=== PATIENT | female | born 1950 | race Caucasian/White ===

== ENCOUNTER 2021-07-11 19:52 | Inpatient (IN) | payer MEDICAID, MEDICARE ==
[~2021-07-11] VITALS: Ht 152.4 cm; Wt 93.2 kg
[2021-07-11] MEDS: BLOOD SUGAR DIAGNOSTIC 1 EACH STRIP IN SCH (07:30)
--- NOTE | 2021-07-11 20:10 | NUR ---
PT BIBDAUGHTER WITH C/O SOB X 1 WEEK. PT ALERT AND ORIENTED X4, BROUGHT IN BY WHEELCHAIR BUT AMBULATORY.
[2021-07-11] MEDS ORDERED: IPRATROPIUM NEB FS 0.5 MG/2.5 ML AMPUL.NEB ONE (20:19)
[2021-07-11] MEDS ORDERED: ALBUTEROL FS 2.5 MG/3 ML VIAL.NEB ONE (20:19)
--- NOTE | 2021-07-11 20:20 | NUR ---
LINE ESTABLISHED @ 20[facility]. BLOOD TAKEN AND SENT TO THE LAB.
--- NOTE | 2021-07-11 20:24 | NUR ---
EMT @ BEDSIDE FOR EKG
[2021-07-11] MEDS ORDERED: IPRATROPIUM NEB FS 0.5 MG/2.5 ML AMPUL.NEB NEB ONE (20:30)
[2021-07-11] MEDS ORDERED: methylPREDNISolone SOD SUCC 125 MG/2ML VIAL IV ONE (20:30)
[2021-07-11] MEDS ORDERED: ALBUTEROL FS 2.5 MG/3 ML VIAL.NEB CONTNEB ONE (20:30)
[2021-07-11 20:35] LABS: BASOPHILS # (AUTO) 0.1 K/uL (0.0-0.2); BASOPHILS % (AUTO) 1.2 % (0.0-2.0); HEMATOCRIT 34 % (33-45); HEMOGLOBIN 10.8 g/dL (11.5-14.8); LYMPHOCYTES # (AUTO) 0.8 K/uL (0.8-4.8); LYMPHOCYTES % (AUTO) 15.2 % (20.0-44.0); MEAN CORPUSCULAR HGB CONC 32 g/dl (31.0-36.0); MEAN CORPUSCULAR VOLUME 95 fL (82-100); MONOCYTES # (AUTO) 0.4 K/uL (0.1-1.30); MONOCYTES % (AUTO) 8.3 % (2.0-12.0); NEUTROPHILS # (AUTO) 3.7 K/uL (1.8-8.9); NEUTROPHILS % (AUTO) 71.3 % (43.0-81.0); PLATELET COUNT (AUTO) 113 K/uL (150-450); RED BLOOD CELL COUNT(AUTO) 3.55 MIL/uL (4.0-5.2); WHITE BLOOD COUNT (AUTO) 5.2 K/uL (4.3-11.0)
[2021-07-11] MEDS ORDERED: methylPREDNISolone SOD SUCC 125 MG/2ML VIAL ONE (20:35)
[2021-07-11 20:56] LABS: CALCIUM, SERUM 8.6 mg/dL (8.5-10.1); CARBON DIOXIDE 26 mmol/L (21-32); CHLORIDE 105 mmol/L (98-107); CREATININE 1.7 mg/dL (0.6-1.3); GLUCOSE 219 mg/dL (74-106); SODIUM SERUM 140 mmol/L (136-145); UREA NITROGEN, BLOOD 45 mg/dL (7-18)
[2021-07-11 21:02] LABS: ALANINE AMINOTRANSFERASE 24 U/L (12-78); ALBUMIN 3.5 g/dL (3.4-5.0); ALKALINE PHOSPHATASE 99 U/L (46-116); ASPARTATE AMINOTRANSFERASE 21 U/L (15-37); BILIRUBIN,DIRECT 0.1 mg/dL (0.0-0.2); BILIRUBIN,TOTAL 0.4 mg/dL (0.2-1.0)
[2021-07-11 21:03] LABS: TOTAL PROTEIN, SERUM 7.1 g/dL (6.4-8.2)
--- NOTE | 2021-07-11 21:18 | NUR ---
FATEM ([facility]) [phone]
[2021-07-11 21:25] LABS: D-DIMER 1.21 mg/L(FEU (0.17-0.50)
[2021-07-11] MEDS ORDERED: FUROSEMIDE 40 MG/4 ML VIAL ONE (21:27)
[2021-07-11] MEDS ORDERED: FUROSEMIDE 40 MG/4 ML VIAL IV ONE (21:30)
--- NOTE | 2021-07-11 21:30 | NUR ---
CALLED [facility], PAGED ANAYA
[2021-07-11] MEDS ORDERED: LABETALOL 20 MG/4 ML VIAL IV PRN (22:00)
[2021-07-11] MEDS ORDERED: ENOXAPARIN SODIUM 40 MG/0.4 ML DISP.SYRIN SQ SCH (22:00)
[2021-07-11] MEDS ORDERED: ACETAMINOPHEN 325 MG TABLET PO PRN (22:00)
[2021-07-11] MEDS ORDERED: ONDANSETRON HCL/PF 4 MG/2 ML VIAL IVP PRN (22:00)
[2021-07-11] MEDS ORDERED: hydrALAZINE HCL IV 20 MG VIAL IV PRN (22:00)
[2021-07-11] MEDS ORDERED: MORPHINE SULFATE INJ 2 MG/ML DISP.SYRIN IV PRN (22:00)
[2021-07-11] MEDS ORDERED: PANT40TA49 PO (22:24)
[2021-07-11] MEDS ORDERED: DEXTROSE 50%-WATER 50 ML DISP.SYRIN IV PRN (23:00)
[2021-07-11] MEDS ORDERED: ALBU18HF2 INH (23:56)
[2021-07-11] MEDS ORDERED: FOLI5VIA2 PO (23:57)
[2021-07-11] MEDS ORDERED: ISOS10TA2 PO (23:58)
[2021-07-11] MEDS ORDERED: FURO40TA5 PO (23:59)
[2021-07-12] MEDS ORDERED: MONT10TA22 PO
[2021-07-12] MEDS ORDERED: LACT10SO3 PO (00:01)
[2021-07-12] MEDS ORDERED: CARV12.52 PO (00:02)
[2021-07-12] MEDS ORDERED: ASPI-1169 PO (00:02)
[2021-07-12] MEDS ORDERED: FERR325T28 PO (00:04)
[2021-07-12] MEDS ORDERED: NITR0.4T48 SL (00:05)
[2021-07-12 04:33] LABS: BASOPHILS # (AUTO) 0.1 K/uL (0.0-0.2); BASOPHILS % (AUTO) 1.3 % (0.0-2.0); EOSINOPHILS % (AUTO) 0.2 % (0.0-6.0); HEMATOCRIT 37 % (33-45); HEMOGLOBIN 11.6 g/dL (11.5-14.8); LYMPHOCYTES # (AUTO) 0.3 K/uL (0.8-4.8); LYMPHOCYTES % (AUTO) 7.4 % (20.0-44.0); MEAN CORPUSCULAR HGB CONC 32 g/dl (31.0-36.0); MEAN CORPUSCULAR VOLUME 96 fL (82-100); MONOCYTES % (AUTO) 1.1 % (2.0-12.0); PLATELET COUNT (AUTO) 124 K/uL (150-450); RED BLOOD CELL COUNT(AUTO) 3.79 MIL/uL (4.0-5.2); WHITE BLOOD COUNT (AUTO) 4.4 K/uL (4.3-11.0)
[2021-07-12 04:57] LABS: ALANINE AMINOTRANSFERASE 33 U/L (12-78); ALBUMIN 3.5 g/dL (3.4-5.0); ALKALINE PHOSPHATASE 105 U/L (46-116); ASPARTATE AMINOTRANSFERASE 16 U/L (15-37); BILIRUBIN,TOTAL 0.5 mg/dL (0.2-1.0); CALCIUM, SERUM 9.3 mg/dL (8.5-10.1); CARBON DIOXIDE 26 mmol/L (21-32); CHLORIDE 104 mmol/L (98-107); CREATININE 1.9 mg/dL (0.6-1.3); GLUCOSE 309 mg/dL (74-106); MAGNESIUM 1.8 mg/dL (1.8-2.4); PHOSPHORUS 3.6 mg/dL (2.5-4.9); POTASSIUM 4.7 mmol/L (3.5-5.1); SODIUM SERUM 140 mmol/L (136-145); TOTAL PROTEIN, SERUM 7.3 g/dL (6.4-8.2); UREA NITROGEN, BLOOD 45 mg/dL (7-18)
[2021-07-12] MEDS: ISOSORBIDE DINITRATE (20MG) 20 MG TABLET PO SCH ×3 (05:00→21:26)
--- NOTE | 2021-07-12 06:08 | NUR ---
311-2 REPORT AFTER CHANGE OF SHIFT
[2021-07-12] MEDS ORDERED: ISOSORBIDE DINITRATE (10MG) 10 MG TABLET ONE (06:42)
--- NOTE | 2021-07-12 07:33 | NUR ---
report given Aixa ROMERO
--- NOTE | 2021-07-12 07:50 | NUR ---
Patient arrived from ER via stretcher, AO X 3-4, Togolese and Kyrgyz speaking, no apparent distress noted. Patient admitting diagnosis CHF, has history of DM, HTN, CKD, anemia. No respiratory distress, no SOB at this time. All orders verified with primary MD. Skin assessment done, patient noted to have raised area of slight induration to left upper arm, no drainage, no odor noted, pictures taken and placed in chart, patient denies any pain or discomfort on site, MD made aware, wound consult initiated. Patient oriented to call light, bed control, TV control, RN and WOOD MODEL BUILDER assigned for her today, verbalized understanding and gratitude. Brakes locked, side rails up X 2, call light left within reach, will monitor closely for any changes.
--- NOTE | 2021-07-12 07:55 | NUR ---
wheeled patient via gurney accompanied by RN and emt in no distress. RN at bedside to assume care.
[2021-07-12] MEDS: predniSONE 20 MG TABLET PO SCH (08:38)
[2021-07-12] MEDS: CARVEDILOL 6.25 MG TABLET PO SCH ×2 (08:39→17:08)
[2021-07-12] MEDS: LISINOPRIL (20MG) 20 MG TABLET PO SCH (08:40)
[2021-07-12 09:00] VITALS: BP 129/56
[2021-07-12] MEDS ORDERED: FUROSEMIDE 20 MG/2 ML VIAL IV SCH (09:00)
[2021-07-12] MEDS ORDERED: HEPARIN SODIUM, PORCINE 5000 UNITS/1 ML VIAL SQ SCH (09:00)
[2021-07-12] MEDS: INSULIN REGULAR, HUMAN 100 UNIT/ML 3 ML VIAL SQ SCH ×2 (10:00→11:15)
[2021-07-12] MEDS: FUROSEMIDE 40 MG/4 ML VIAL IV SCH ×3 (10:01→17:07)
[2021-07-12] MEDS: ENOXAPARIN SODIUM 30 MG/0.3 ML DISP.SYRIN SQ SCH (10:01)
[2021-07-12] MEDS: BLOOD SUGAR DIAGNOSTIC 1 EACH STRIP IN SCH (10:02)
--- NOTE | 2021-07-12 10:18 | NUR ---
WOUND CARE CONSULT: PT PRESENTS WITH RAISED AREA OF SLIGHT INDURATION TO LEFT UPPER ARM, PRESENT ON ADMISSION. DEFER TO PMD FOR POSSIBLE SURGICAL CONSULT. RECOMMENDATIONS MADE FOR SKIN PROTECTION. DISCUSSED WITH NURSING STAFF. CURRENT ANA M SCORE IS 17. WILL SEE PRN. Addendum: 07/12/21 at 1020 by ALEJANDRA GARSIA WNDNU Amended: Links added.
[2021-07-12] MEDS ORDERED: Z GUARD REMEDY 2 OZ OINT TP PRN (10:30)
[2021-07-12] MEDS ORDERED: GUAIFENESIN/D-METHORPHAN HB 5 ML UDC PO PRN (11:30)
[2021-07-12] MEDS ORDERED: NITROGLYCERIN 0.4 MG/TAB BOTTLE SL PRN (11:30)
[2021-07-12] MEDS: Z GUARD REMEDY 2 OZ OINT TP SCH (11:45)
[2021-07-12 12:03] LABS: THYROID STIMULATING HORMONE 0.571 uIU/mL (0.358-3.74)
[2021-07-12] MEDS ORDERED: DEXTROSE 50%-WATER 50 ML DISP.SYRIN IV PRN (12:30)
[2021-07-12 12:45] VITALS: BP 124/50
[2021-07-12] MEDS: LEVOFLOXACIN (250MG) 250 MG TABLET PO SCH (13:02)
[2021-07-12] MEDS: INSULIN REGULAR, HUMAN 100 UNIT/ML 3 ML VIAL SQ PRN ×2 (13:13→17:09)
[2021-07-12] MEDS: BLOOD SUGAR DIAGNOSTIC 1 EACH STRIP VI SCH ×3 (13:14→21:21)
[2021-07-12] MEDS: ALBUTEROL HALF STRENGTH 1.25 MG/3 ML VIAL.NEB NEB SCH ×2 (13:30→19:48)
[2021-07-12] MEDS: IPRATROPIUM NEB FS 0.5 MG/2.5 ML AMPUL.NEB NEB SCH ×2 (13:30→19:48)
[2021-07-12 15:49] VITALS: BP 120/57
[2021-07-12] MEDS ORDERED: CARVEDILOL 12.5 MG TABLET PO SCH (17:00)
[2021-07-12] MEDS: INSULIN NPH/REG 70/30 MIX INJ 100 UNIT/ML VIAL SQ SCH (17:55)
--- NOTE | 2021-07-12 18:48 | NUR ---
RN CLOSING NOTES Patient seen comfortably lying in bed, no apparent distress noted, denies any pain or discomfort. All medications given per MD order, tolerating well. Patient also on Levaquin for pneumonia, no adverse effect at this time, noted with episodes of coughing, breathing even and unlabored, no SOB. No hypo/hyperglycemia noted, insulin given per sliding scale, tolerated well. All needs attended, kept clean and dry, call light left within reach, safety precautions maintained, brakes locked, side rails up X 2, will endorse to next shift for continuity of care.
--- NOTE | 2021-07-12 19:15 | NUR ---
BARREL FILLER HEAD OPENING NOTES: RECEIVED PATIENT IN BED, AWAKE, A/O X4. NO DISTRESS NOTED. CALL LIGHT WITHIN REACH. BED IN LOWEST AND LOCKED POSITION. BED ALARM ON.
[2021-07-12 20:00] VITALS: BP 115/63
--- NOTE | 2021-07-12 21:21 | NUR ---
blood sugar 102, no coverage needed at this time.
[2021-07-13] VITALS: BP_SYST 124; BP_DIAS 55; BP_DIAS 65
--- NOTE | 2021-07-13 00:48 | NUR ---
PATIENT COMPLAINED OF STOMACH UPSET. PATIENT IS ASKING IF SHE CAN HAVE HER EYEDROPS PROLENSA AND PREDNISOLONE, INFORMED .
[2021-07-13] MEDS ORDERED: MAG HYDROX/AL HYDROX/SIMETH 30 ML UDC PO PRN (01:00)
[2021-07-13] MEDS ORDERED: BROMFENAC XX SCH (01:00)
[2021-07-13] MEDS: IPRATROPIUM NEB FS 0.5 MG/2.5 ML AMPUL.NEB NEB SCH ×6 (01:30→20:03)
[2021-07-13] MEDS: ALBUTEROL HALF STRENGTH 1.25 MG/3 ML VIAL.NEB NEB SCH ×6 (01:30→20:03)
[2021-07-13 04:00] VITALS: BP 124/59
[2021-07-13] MEDS: LACTULOSE 10 G/15 ML UDC (PYXIS) PO PRN (05:57)
[2021-07-13] MEDS: ISOSORBIDE DINITRATE (20MG) 20 MG TABLET PO SCH ×3 (05:58→21:34)
[2021-07-13 06:14] LABS: BASOPHILS % (AUTO) 0.1 % (0.0-2.0); HEMATOCRIT 30 % (33-45); HEMOGLOBIN 9.9 g/dL (11.5-14.8); LYMPHOCYTES # (AUTO) 0.7 K/uL (0.8-4.8); LYMPHOCYTES % (AUTO) 7.7 % (20.0-44.0); MEAN CORPUSCULAR HGB CONC 33 g/dl (31.0-36.0); MEAN CORPUSCULAR VOLUME 96 fL (82-100); MONOCYTES # (AUTO) 0.4 K/uL (0.1-1.30); NEUTROPHILS # (AUTO) 8.6 K/uL (1.8-8.9); NEUTROPHILS % (AUTO) 88.2 % (43.0-81.0); PLATELET COUNT (AUTO) 116 K/uL (150-450); RED BLOOD CELL COUNT(AUTO) 3.11 MIL/uL (4.0-5.2); WHITE BLOOD COUNT (AUTO) 9.7 K/uL (4.3-11.0)
[2021-07-13] MEDS: BLOOD SUGAR DIAGNOSTIC 1 EACH STRIP VI SCH ×4 (06:45→21:40)
--- NOTE | 2021-07-13 06:46 | NUR ---
blood sugar 105, no coverage needed.
[2021-07-13 07:03] LABS: ALKALINE PHOSPHATASE 81 U/L (46-116); ASPARTATE AMINOTRANSFERASE 5 U/L (15-37); BILIRUBIN,TOTAL 0.4 mg/dL (0.2-1.0); CALCIUM, SERUM 8.8 mg/dL (8.5-10.1); CARBON DIOXIDE 25 mmol/L (21-32); CHLORIDE 105 mmol/L (98-107); GLUCOSE 71 mg/dL (74-106); PHOSPHORUS 3.1 mg/dL (2.5-4.9); POTASSIUM 4.2 mmol/L (3.5-5.1); SODIUM SERUM 139 mmol/L (136-145); TOTAL PROTEIN, SERUM 6.2 g/dL (6.4-8.2); UREA NITROGEN, BLOOD 59 mg/dL (7-18)
[2021-07-13 08:00] VITALS: BP 122/58
[2021-07-13] MEDS: INSULIN NPH/REG 70/30 MIX INJ 100 UNIT/ML VIAL SQ SCH ×2 (08:00→18:46)
--- NOTE | 2021-07-13 08:00 | NUR ---
MS RN OPENING NOTE RECEIVED PATIENT LYING IN BED, RESTING. EASY TO AROUSE. A/O X4. ON 2L OXYGEN VIA NASAL CANNULA, TOLERATING WELL. NO SOB NOTED. NO DISTRESS/DISCOMFORT NOTED. PATIENT IS BRP WITH WALKER/ASSISTANCE. IV ACCESS TO RIGHT AC #20 - SALINE LOCKED. SAFETY MEASURES IN PLACE. CALL LIGHT WITHIN REACH. WILL CONTINUE TO MONITOR.
[2021-07-13] MEDS: FERROUS SULFATE (325 MG) 325 MG/TAB TABLET PO SCH (08:13)
[2021-07-13] MEDS: MONTELUKAST SODIUM (10MG) 10 MG TABLET PO SCH (08:13)
[2021-07-13] MEDS: CARVEDILOL 6.25 MG TABLET PO SCH ×2 (08:13→16:32)
[2021-07-13] MEDS: ASPIRIN 81 MG TAB.CHEW PO SCH (08:13)
[2021-07-13] MEDS: LISINOPRIL (20MG) 20 MG TABLET PO SCH (08:13)
[2021-07-13] MEDS: PANTOPRAZOLE 40 MG TABLET.DR PO SCH (08:13)
[2021-07-13] MEDS: predniSONE 20 MG TABLET PO SCH (08:14)
[2021-07-13] MEDS: ENOXAPARIN SODIUM 30 MG/0.3 ML DISP.SYRIN SQ SCH (08:21)
--- NOTE | 2021-07-13 08:24 | NUR ---
blood sugar 88 - no humulin given
[2021-07-13] MEDS: Z GUARD REMEDY 2 OZ OINT TP SCH (08:25)
[2021-07-13] MEDS: prednisoLONE ACETATE 1% SUSP 5 ML BOTTLE LEFTEYE SCH (08:34)
[2021-07-13] MEDS ORDERED: ISOSORBIDE DINITRATE (10MG) 10 MG TABLET PO SCH (09:00)
[2021-07-13] MEDS: FUROSEMIDE 100 MG/10 ML VIAL IV SCH ×3 (09:24→16:32)
--- NOTE | 2021-07-13 09:50 | NUR ---
RT NOTE: PATIENT REFUSED ABG DRAW. PATIENT EDUCATED ON THE IMPORTANCE OF THE PROCEDURE BUT PATIENT STILL REFUSES. PATIENT IS AWARE THAT SHE CAN CHANGE HER MIND AT ANY TIME AND WAS INSTRUCTED TO NOTIFY ME. RN (GAEL) NOTIFIED.
[2021-07-13 10:19] LABS: ALANINE AMINOTRANSFERASE 22 U/L (12-78)
[2021-07-13] MEDS: INSULIN REGULAR, HUMAN 100 UNIT/ML 3 ML VIAL SQ PRN ×2 (11:39→16:51)
[2021-07-13] MEDS: LEVOFLOXACIN (250MG) 250 MG TABLET PO SCH (12:17)
[2021-07-13 15:56] VITALS: BP 119/54
--- NOTE | 2021-07-13 18:35 | NUR ---
MS RN CLOSING NOTE PATIENT CURRENTLY LYING IN BED, AWAKE. A/O X4. ON 2L OXYGEN VIA NASAL CANNULA, TOLERATING WELL. NO SOB NOTED. NO DISTRESS/DISCOMFORT NOTED. PATIENT IS BRP WITH WALKER/ASSISTANCE. IV ACCESS TO RIGHT AC #20 - SALINE LOCKED. PATIENT HAS ASKED THAT HER MEALS BE SPICE/SALT FREE DUE TO HER STOMACH ISSUES. SAFETY MEASURES IN PLACE. CALL LIGHT WITHIN REACH. WILL ENDORSE TO ATTORNEY RECRUITER NURSE FOR IVY.
--- NOTE | 2021-07-13 19:15 | NUR ---
MS RN OPENING NOTES: RECEIVED PATIENT IN BED, AWAKE, A/O X4. NO DISTRESS NOTED. CALL LIGHT WIHTIN REACH, WORKING GOOD. BED IN LOWEST AND LOCKED POSITION. BED ALARM ON. HOB ELEVATED. FWW AT THE BEDSIDE.
[2021-07-13 20:00] VITALS: BP 131/63
[2021-07-13] MEDS: CEPHALEXIN MONOHYDRATE 500 MG CAPSULE PO SCH (21:34)
[2021-07-13] MEDS: *INSULIN REGULAR(HUMULIN R)HUM 100 UNIT/ML VIAL SQ PRN (21:40)
[2021-07-14] MEDS: ALBUTEROL HALF STRENGTH 1.25 MG/3 ML VIAL.NEB NEB SCH ×4 (01:30→19:09)
[2021-07-14] MEDS: IPRATROPIUM NEB FS 0.5 MG/2.5 ML AMPUL.NEB NEB SCH ×4 (01:30→19:09)
[2021-07-14] MEDS: ISOSORBIDE DINITRATE (20MG) 20 MG TABLET PO SCH ×3 (05:11→21:21)
[2021-07-14 06:28] LABS: BASOPHILS % (AUTO) 0.1 % (0.0-2.0); HEMATOCRIT 30 % (33-45); HEMOGLOBIN 9.9 g/dL (11.5-14.8); LYMPHOCYTES # (AUTO) 0.7 K/uL (0.8-4.8); LYMPHOCYTES % (AUTO) 7.4 % (20.0-44.0); MEAN CORPUSCULAR HGB CONC 33 g/dl (31.0-36.0); MEAN CORPUSCULAR VOLUME 95 fL (82-100); MONOCYTES # (AUTO) 0.4 K/uL (0.1-1.30); MONOCYTES % (AUTO) 4.3 % (2.0-12.0); NEUTROPHILS # (AUTO) 7.9 K/uL (1.8-8.9); NEUTROPHILS % (AUTO) 88.2 % (43.0-81.0); PLATELET COUNT (AUTO) 122 K/uL (150-450); RED BLOOD CELL COUNT(AUTO) 3.18 MIL/uL (4.0-5.2)
[2021-07-14] MEDS: BLOOD SUGAR DIAGNOSTIC 1 EACH STRIP VI SCH ×4 (06:44→21:16)
--- NOTE | 2021-07-14 06:44 | NUR ---
BLOOD SUGAR 75, NO COVERAGE NEEDED, PATIENT REQUESTED AN ORANGE JUICE, GIVEN.
[2021-07-14 07:42] LABS: ALANINE AMINOTRANSFERASE 20 U/L (12-78); ALBUMIN 3.1 g/dL (3.4-5.0); ALKALINE PHOSPHATASE 78 U/L (46-116); ASPARTATE AMINOTRANSFERASE 11 U/L (15-37); BILIRUBIN,TOTAL 0.4 mg/dL (0.2-1.0); CALCIUM, SERUM 9.1 mg/dL (8.5-10.1); CARBON DIOXIDE 27 mmol/L (21-32); CHLORIDE 104 mmol/L (98-107); CREATININE 2.3 mg/dL (0.6-1.3); GLUCOSE 77 mg/dL (74-106); PHOSPHORUS 3.9 mg/dL (2.5-4.9); POTASSIUM 4.3 mmol/L (3.5-5.1); SODIUM SERUM 139 mmol/L (136-145); TOTAL PROTEIN, SERUM 6.2 g/dL (6.4-8.2); UREA NITROGEN, BLOOD 69 mg/dL (7-18)
--- NOTE | 2021-07-14 07:59 | NUR ---
RN OPENING NOTE PT AWAKE IN BED RESTING. ON 2L NC O2 PRESENT, SOB PRESENT. NO RESPIRATORY DISTRESS PRESENT. A/O X4 AND ALBANIAN SPEAKING. NO COMPLAINT OR PAIN OR NAUSEA. NO CONTRACTS ATTORNEY PRESENT. NO EDEMA PRESENT. AMBULATORY WITH STANDBY ASSIST. COMMODE AT BEDSIDE. SKIN PROBLEMS PRESENT, PICTURES IN CHART, CONSULT ORDERED. IV PRESENT. ON R AC 20G AND FLUSHES WELL. LABS AND ORDERS REVIEWED. SAFETY MEASURES IN PLACE. SIDE RAILS RAISED. BED LOWERED. CALL LIGHT WITHIN REACH. WILL CONTINUE TO MONITOR.
[2021-07-14 08:00] VITALS: BP 127/59
[2021-07-14] MEDS: INSULIN NPH/REG 70/30 MIX INJ 100 UNIT/ML VIAL SQ SCH ×2 (08:00→17:15)
[2021-07-14] MEDS: CARVEDILOL 6.25 MG TABLET PO SCH ×2 (08:33→17:21)
[2021-07-14] MEDS: CEPHALEXIN MONOHYDRATE 500 MG CAPSULE PO SCH ×2 (08:33→21:21)
[2021-07-14] MEDS: ASPIRIN 81 MG TAB.CHEW PO SCH (08:33)
[2021-07-14] MEDS: prednisoLONE ACETATE 1% SUSP 5 ML BOTTLE LEFTEYE SCH (08:33)
[2021-07-14] MEDS: FERROUS SULFATE (325 MG) 325 MG/TAB TABLET PO SCH (08:33)
[2021-07-14] MEDS: predniSONE 20 MG TABLET PO SCH (08:34)
[2021-07-14] MEDS: PANTOPRAZOLE 40 MG TABLET.DR PO SCH (08:34)
[2021-07-14] MEDS: Z GUARD REMEDY 2 OZ OINT TP SCH (08:34)
[2021-07-14] MEDS: LISINOPRIL (20MG) 20 MG TABLET PO SCH (08:34)
[2021-07-14] MEDS: MONTELUKAST SODIUM (10MG) 10 MG TABLET PO SCH (08:34)
[2021-07-14] MEDS: ENOXAPARIN SODIUM 30 MG/0.3 ML DISP.SYRIN SQ SCH (08:47)
[2021-07-14 12:06] LABS: ABG OXYGEN SATURATION 96.7 % (92.0-98.5); ABG PCO2 33.2 mmHg (35.0-45.0); ABG PH 7.433 (7.350-7.450); ABG PO2 85.7 mmHg (75.0-100.0); AaDO2 24.3 mmHg; COHb 0.3 % (0.5-1.5); MetHb 0.1 % (0.0-1.5); O2Hb 96.3 % (94.0-97.0); SITE, ABG Left Brachial; VENT MODE, BG ROOM AIR
[2021-07-14] MEDS: LEVOFLOXACIN (250MG) 250 MG TABLET PO SCH (12:17)
[2021-07-14] MEDS: INSULIN REGULAR, HUMAN 100 UNIT/ML 3 ML VIAL SQ PRN ×2 (12:25→17:16)
[2021-07-14 16:00] VITALS: BP 133/48
--- NOTE | 2021-07-14 18:47 | NUR ---
RN CLOSING NOTE PT AWAKE IN BED RESTING. ON 2L NC O2 PRESENT, SOB PRESENT. NO RESPIRATORY DISTRESS PRESENT. A/O X4 AND KYRGYZ SPEAKING. NO COMPLAINT OR PAIN OR NAUSEA. NO COMPONENT INSPECTOR PRESENT. NO EDEMA PRESENT. AMBULATORY WITH STANDBY ASSIST. COMMODE AT BEDSIDE. SKIN PROBLEMS PRESENT, PICTURES IN CHART, CONSULT ORDERED. IV PRESENT ON R AC 20G AND FLUSHES WELL. LABS AND ORDERS REVIEWED. SAFETY MEASURES IN PLACE. SIDE RAILS RAISED. BED LOWERED. CALL LIGHT WITHIN REACH. REPORT TO BE GIVEN TO NIGHT NURSE FOR IVY.
--- NOTE | 2021-07-14 19:15 | NUR ---
RN OPENING NOTE RECEIVED PT SITTING UP AT THE SIDE OF HER BED, ON HER CELLPHONE. A/OX4, BELARUSIAN, SPEAKS BELIZEAN WELL. SHE DENIES ANY PAIN/DISCOMFORT. ON ROOM AIR AT THIS TIME AND MARY. WELL. SHE DENIES SOB. IV SITE R-AC #20 INTACT/PATENT/FLUSHES WELL. PT IN NO ACUTE DISTRESS. SAFETY MEASURES IN PLACE, BED IN LOWEST LOCKED POSITION, S/R UPX2, CALL LIGHT WITHIN REACH. WILL CONT TO MONITOR.
[2021-07-14 20:00] VITALS: BP 145/71
[2021-07-14] MEDS: *INSULIN REGULAR(HUMULIN R)HUM 100 UNIT/ML VIAL SQ PRN (21:32)
[2021-07-15] MEDS: IPRATROPIUM NEB FS 0.5 MG/2.5 ML AMPUL.NEB NEB SCH ×4 (01:30→19:30)
[2021-07-15] MEDS: ALBUTEROL HALF STRENGTH 1.25 MG/3 ML VIAL.NEB NEB SCH ×4 (01:30→19:30)
[2021-07-15] MEDS: ISOSORBIDE DINITRATE (20MG) 20 MG TABLET PO SCH ×3 (04:59→22:12)
--- NOTE | 2021-07-15 07:00 | NUR ---
RN CLOSING NOTE PT RESTING IN BED, EASILY AWAKENS TO STIMULI. A/OX4. DENIES ANY PAIN OR DISCOMFORT. PT DID NOT USE O2 THIS SHIFT, SHE STATES HER BREATHING IS GOOD, DENIES ANY SOB. NO S/S OF HYPO/HYPERGLYCEMIA NOTED. NO ACUTE EVENTS DURING THE NIGHT. ENDORSED TO NEXT SHIFT NURSE.
--- NOTE | 2021-07-15 07:26 | NUR ---
found @ room air with 96 saturation. refused hhn tx @ this time. Addendum: 07/15/21 at 0727 by ELI ATKINS RT Amended: Links added.
[2021-07-15 07:40] LABS: BASOPHILS % (AUTO) 0.1 % (0.0-2.0); HEMATOCRIT 34 % (33-45); LYMPHOCYTES # (AUTO) 0.7 K/uL (0.8-4.8); LYMPHOCYTES % (AUTO) 8.1 % (20.0-44.0); MEAN CORPUSCULAR HGB CONC 33 g/dl (31.0-36.0); MEAN CORPUSCULAR VOLUME 95 fL (82-100); MONOCYTES # (AUTO) 0.6 K/uL (0.1-1.30); MONOCYTES % (AUTO) 7.3 % (2.0-12.0); NEUTROPHILS # (AUTO) 6.8 K/uL (1.8-8.9); NEUTROPHILS % (AUTO) 84.5 % (43.0-81.0); PLATELET COUNT (AUTO) 129 K/uL (150-450); RED BLOOD CELL COUNT(AUTO) 3.52 MIL/uL (4.0-5.2); WHITE BLOOD COUNT (AUTO) 8.1 K/uL (4.3-11.0)
[2021-07-15 07:56] LABS: CALCIUM, SERUM 8.8 mg/dL (8.5-10.1); CARBON DIOXIDE 27 mmol/L (21-32); CHLORIDE 103 mmol/L (98-107); CREATININE 2.3 mg/dL (0.6-1.3); GLUCOSE 124 mg/dL (74-106); PHOSPHORUS 3.1 mg/dL (2.5-4.9); POTASSIUM 4.3 mmol/L (3.5-5.1); SODIUM SERUM 138 mmol/L (136-145); UREA NITROGEN, BLOOD 69 mg/dL (7-18)
[2021-07-15 08:00] VITALS: BP 132/69
--- NOTE | 2021-07-15 08:00 | NUR ---
RN OPENING NOTE PT AWAKE IN BED RESTING. ON 2L NC O2 PRESENT, SOB PRESENT. NO RESPIRATORY DISTRESS PRESENT. A/O X4 AND YI SPEAKING. NO COMPLAINT OR PAIN OR NAUSEA. NO BUSINESS ANALYTICS SPECIALIST PRESENT. NO EDEMA PRESENT. AMBULATORY WITH STANDBY ASSIST. COMMODE AT BEDSIDE. SKIN PROBLEMS PRESENT, PICTURES IN CHART, CONSULT ORDERED. IV PRESENT. ON R AC 20G AND FLUSHES WELL. LABS AND ORDERS REVIEWED. SAFETY MEASURES IN PLACE. SIDE RAILS RAISED. BED LOWERED. CALL LIGHT WITHIN REACH. WILL CONTINUE TO MONITOR.
--- NOTE | 2021-07-15 08:10 | NUR ---
WOUND CARE CONSULT/FOLLOW UP: PT SEEN FOR LEFT UPPER ARM AREA OF INDURATION, NOW OPEN WITH SCANT AMOUNT OF PURULENT/SEROSANGUINOUS DRAINAGE. WOUND WAS PRESENT ON ADMISSION. RECOMMENDATIONS MADE FOR SKIN PROTECTION AND WOUND CARE. DISCUSSED WITH NURSING STAFF. IN AGREEMENT WITH PLAN OF CARE. Addendum: 07/15/21 at 0811 by ALEJANDRA GARSIA WNDNU Amended: Links added.
[2021-07-15] MEDS: BLOOD SUGAR DIAGNOSTIC 1 EACH STRIP VI SCH ×4 (08:50→22:17)
[2021-07-15] MEDS: ENOXAPARIN SODIUM 30 MG/0.3 ML DISP.SYRIN SQ SCH (08:56)
[2021-07-15] MEDS: INSULIN NPH/REG 70/30 MIX INJ 100 UNIT/ML VIAL SQ SCH ×2 (08:56→17:14)
[2021-07-15] MEDS: FERROUS SULFATE (325 MG) 325 MG/TAB TABLET PO SCH (08:57)
[2021-07-15] MEDS: ASPIRIN 81 MG TAB.CHEW PO SCH (08:57)
[2021-07-15] MEDS: prednisoLONE ACETATE 1% SUSP 5 ML BOTTLE LEFTEYE SCH (08:57)
[2021-07-15] MEDS: CEPHALEXIN MONOHYDRATE 500 MG CAPSULE PO SCH ×2 (08:57→22:11)
[2021-07-15] MEDS: predniSONE 20 MG TABLET PO SCH (08:58)
[2021-07-15] MEDS: MONTELUKAST SODIUM (10MG) 10 MG TABLET PO SCH (08:59)
[2021-07-15] MEDS: PANTOPRAZOLE 40 MG TABLET.DR PO SCH (08:59)
[2021-07-15] MEDS: Z GUARD REMEDY 2 OZ OINT TP SCH (08:59)
[2021-07-15] MEDS: CARVEDILOL 6.25 MG TABLET PO SCH ×2 (09:11→17:14)
[2021-07-15] MEDS: NEOMY SULF/BACITRAC ZN/POLY 15 GM TUBE TP SCH (10:34)
[2021-07-15] MEDS: INSULIN REGULAR, HUMAN 100 UNIT/ML 3 ML VIAL SQ PRN (17:18)
--- NOTE | 2021-07-15 17:47 | NUR ---
RN CLOSING NOTE PT AWAKE IN BED RESTING. ON RA WITH NO SOB OR RESPIRATORY DISTRESS PRESENT. A/O X4 AND IRANIAN SPEAKING. NO COMPLAINT OR PAIN OR NAUSEA. NO SENIOR CLINICAL DATA COORDINATOR PRESENT. NO EDEMA PRESENT. AMBULATORY WITH STANDBY ASSIST. COMMODE AT BEDSIDE. SKIN PROBLEMS PRESENT, PICTURES IN CHART, CONSULT ORDERED. IV PRESENT ON R AC 20G AND FLUSHES WELL. LABS AND ORDERS REVIEWED. SAFETY MEASURES IN PLACE. SIDE RAILS RAISED. BED LOWERED. CALL LIGHT WITHIN REACH. REPORT TO BE GIVEN TO NIGHT NURSE FOR IVY.
--- NOTE | 2021-07-15 19:05 | NUR ---
MS RN OPENING NOTES: RECEIVED PATIENT IN BED, SITTING. NO DISTRESS NOTED. A/O X4. CALL LIGHT WITHIN REACH. BED IN LOWEST AND LOCKED POSITION. FWW AT THE BEDSIDE.
[2021-07-15 20:00] VITALS: BP 132/61
[2021-07-15] MEDS: *INSULIN REGULAR(HUMULIN R)HUM 100 UNIT/ML VIAL SQ PRN (22:17)
[2021-07-15 23:42] LABS: BILIRUBIN,URINE NEGATIVE (NEGATIVE); COLOR,URINE YELLOW (YELLOW); LEUKOCYTE ESTERASE ,URINE SMALL (NEGATIVE); NITRITE, URINE NEGATIVE (NEGATIVE); PROTEIN,URINE NEGATIVE (NEGATIVE); UGLUCOSE NEGATIVE (NEGATIVE); UROBILINOGEN,URINE 0.2 EU/dL (0.2)
[2021-07-15 23:57] LABS: CREATININE, URINE 64.7 MG/DL (30.0-125.0)
[2021-07-16 00:05] LABS: URINE TOTAL PROTEIN 11.2 mg/dL (0-11.9)
[2021-07-16 01:26] LABS: BACTERIA,URINE Moderate /HPF (None Seen); RBC,URINE 0-2 /HPF (0-2); SQUAMOUS EPITHELIAL CELL,UR Many /HPF (None Seen); WBC,URINE 21-50 /HPF (0-3)
[2021-07-16] MEDS: ALBUTEROL HALF STRENGTH 1.25 MG/3 ML VIAL.NEB NEB SCH ×4 (01:30→19:30)
[2021-07-16] MEDS: IPRATROPIUM NEB FS 0.5 MG/2.5 ML AMPUL.NEB NEB SCH ×4 (01:30→19:30)
[2021-07-16] MEDS: ISOSORBIDE DINITRATE (20MG) 20 MG TABLET PO SCH ×3 (05:29→21:38)
[2021-07-16] MEDS: INSULIN REGULAR, HUMAN 100 UNIT/ML 3 ML VIAL SQ PRN ×2 (06:43→16:36)
[2021-07-16] MEDS: BLOOD SUGAR DIAGNOSTIC 1 EACH STRIP VI SCH ×4 (06:47→21:36)
[2021-07-16 07:24] LABS: BASOPHILS % (AUTO) 0.1 % (0.0-2.0); HEMATOCRIT 32 % (33-45); HEMOGLOBIN 10.6 g/dL (11.5-14.8); LYMPHOCYTES # (AUTO) 0.6 K/uL (0.8-4.8); LYMPHOCYTES % (AUTO) 9.2 % (20.0-44.0); MEAN CORPUSCULAR HGB CONC 33 g/dl (31.0-36.0); MEAN CORPUSCULAR VOLUME 95 fL (82-100); MONOCYTES # (AUTO) 0.5 K/uL (0.1-1.30); NEUTROPHILS # (AUTO) 5.6 K/uL (1.8-8.9); NEUTROPHILS % (AUTO) 83.7 % (43.0-81.0); PLATELET COUNT (AUTO) 126 K/uL (150-450); WHITE BLOOD COUNT (AUTO) 6.7 K/uL (4.3-11.0)
--- NOTE | 2021-07-16 07:30 | NUR ---
RN OPENING NOTES RECEIVED PT IN BED RESTING. WITH O2 VIA NC AT 2LPM, TOLERATING WELL. NO RESPIRATORY DISTRESS PRESENT. A/O X4 AND SETSWANA SPEAKING. NO COMPLAINTS OF PAIN OR NAUSEA AT THIS TIME. NO EDEMA PRESENT. AMBULATORY WITH STANDBY ASSIST. COMMODE AT BEDSIDE. IV ACCESS ON R AC 20G PATENT AND FLUSHES WELL. SAFETY MEASURES IN PLACE. SIDE RAILS RAISED. BED ON LOWEST LOCKED POSITION. CALL LIGHT WITHIN REACH. WILL CONTINUE TO MONITOR ACCORDINGLY.
[2021-07-16 08:00] VITALS: BP 128/58
[2021-07-16 08:36] LABS: CARBON DIOXIDE 29 mmol/L (21-32); CHLORIDE 101 mmol/L (98-107); CREATININE 2.4 mg/dL (0.6-1.3); GLUCOSE 205 mg/dL (74-106); MAGNESIUM 2.1 mg/dL (1.8-2.4); PHOSPHORUS 3.4 mg/dL (2.5-4.9); POTASSIUM 4.6 mmol/L (3.5-5.1); SODIUM SERUM 137 mmol/L (136-145); UREA NITROGEN, BLOOD 72 mg/dL (7-18)
[2021-07-16] MEDS: INSULIN NPH/REG 70/30 MIX INJ 100 UNIT/ML VIAL SQ SCH ×2 (08:58→17:39)
[2021-07-16] MEDS: ENOXAPARIN SODIUM 30 MG/0.3 ML DISP.SYRIN SQ SCH (08:59)
[2021-07-16] MEDS: Z GUARD REMEDY 2 OZ OINT TP SCH (09:00)
[2021-07-16] MEDS: MONTELUKAST SODIUM (10MG) 10 MG TABLET PO SCH (09:03)
[2021-07-16] MEDS: FERROUS SULFATE (325 MG) 325 MG/TAB TABLET PO SCH (09:03)
[2021-07-16] MEDS: ASPIRIN 81 MG TAB.CHEW PO SCH (09:03)
[2021-07-16] MEDS: CEPHALEXIN MONOHYDRATE 500 MG CAPSULE PO SCH ×2 (09:03→21:38)
[2021-07-16] MEDS: predniSONE 20 MG TABLET PO SCH (09:04)
[2021-07-16] MEDS: CARVEDILOL 6.25 MG TABLET PO SCH ×2 (09:04→16:25)
[2021-07-16] MEDS: NEOMY SULF/BACITRAC ZN/POLY 15 GM TUBE TP SCH (09:14)
[2021-07-16] MEDS: prednisoLONE ACETATE 1% SUSP 5 ML BOTTLE LEFTEYE SCH (09:14)
[2021-07-16] MEDS: *INSULIN REGULAR(HUMULIN R)HUM 100 UNIT/ML VIAL SQ PRN ×2 (12:10→21:40)
[2021-07-16] MEDS ORDERED: IV NS 0.9% 500 ML IV ONE (13:00)
--- NOTE | 2021-07-16 13:21 | NUR ---
RN NOTES PATIENT'S IV NOTED TO BE LEAKING. DISCONNECTED IV FLUID. INFORMED PATIENT THAT REINSERTION OF IV IS NEEDED. PATIENT REFUSED, EXPLAINED THE RISK SEVERAL TIMES, PATIENT STILL REFUSED. CHARGE NURSE MADE AWARE.
--- NOTE | 2021-07-16 14:28 | NUR ---
RN NOTES RECEIVED A PHONE CALL FROM [facility] (PHARMACY) FOLLOWING UP REGARDING PATIENT'S PROLANZA, ASKED PATIENT ABOUT IT AND PATIENT TOLD ME THAT SHE'S GOING TO FOLLOW IT UP WITH HER DAUGHTER.
[2021-07-16 16:18] VITALS: BP 105/48
--- NOTE | 2021-07-16 18:41 | NUR ---
MS RN CLOSING NOTES PT IN BED RESTING, ON ROOM AIR, TOLERATING WELL. NO RESPIRATORY DISTRESS PRESENT. A/O X4 AND EGYPTIAN SPEAKING. NO COMPLAINTS OF PAIN OR NAUSEA AT THIS TIME. NO EDEMA PRESENT. AMBULATORY WITH STANDBY ASSIST. COMMODE AT BEDSIDE. IV ACCESS ON R AC 20G PATENT AND FLUSHES WELL. SAFETY MEASURES IN PLACE. SIDE RAILS RAISED. BED ON LOWEST LOCKED POSITION. CALL LIGHT WITHIN REACH. ALL DUE MEDS GIVEN, ALL NEEDS ATTENDED AND MET. WILL ENDORSE TO ONCOMING SHIFT FOR IVY.
--- NOTE | 2021-07-16 19:10 | NUR ---
MS RN OPENING NOTES: RECEIVED PATIENT SITTING AT THE EDGE OF THE BED, AWAKE, A/O X4. NO S/S OF DISTRESS NOTED. CALL LIGHT WITHIN REACH. BED IN LOWEST AND LOCKED POSITION. FWW AT THE BEDSIDE.
--- NOTE | 2021-07-16 19:50 | NUR ---
RT NOTE PT REFUSED HHN TX AT THIS TIME. SPO2 100%. NO RESP DISTRESS NOTED.
[2021-07-16 21:58] VITALS: BP 107/48
[2021-07-17] MEDS: ALBUTEROL HALF STRENGTH 1.25 MG/3 ML VIAL.NEB NEB SCH ×3 (01:30→13:23)
[2021-07-17] MEDS: IPRATROPIUM NEB FS 0.5 MG/2.5 ML AMPUL.NEB NEB SCH ×3 (01:30→13:23)
--- NOTE | 2021-07-17 01:44 | NUR ---
RT NOTE PT REFUSED HHN TX. SPO2 100%. NO DISTRESS OR SOB NOTED @ THIS TIME
[2021-07-17] MEDS: ISOSORBIDE DINITRATE (20MG) 20 MG TABLET PO SCH ×2 (05:20→13:42)
[2021-07-17] MEDS: BLOOD SUGAR DIAGNOSTIC 1 EACH STRIP VI SCH ×2 (06:26→11:52)
[2021-07-17] MEDS: INSULIN REGULAR, HUMAN 100 UNIT/ML 3 ML VIAL SQ PRN ×3 (06:26→11:54)
[2021-07-17] MEDS: LACTULOSE 10 G/15 ML UDC (PYXIS) PO PRN (07:02)
--- NOTE | 2021-07-17 07:33 | NUR ---
RN OPENING NOTE- RECEIVED PT IN BED RESTING. DENIES PAIN. NO RESPIRATORY DISTRESS PRESENT. A/O X4 AND AZERI SPEAKING.. NO EDEMA PRESENT. AMBULATORY WITH STANDBY ASSIST. COMMODE AT BEDSIDE. IV ACCESS ON R AC 20G PATENT AND FLUSHES WELL. SAFETY MEASURES IN PLACE. SIDE RAILS RAISED. BED ON LOWEST LOCKED POSITION. CALL LIGHT WITHIN REACH.
[2021-07-17 08:00] VITALS: BP 141/65
[2021-07-17] MEDS: INSULIN NPH/REG 70/30 MIX INJ 100 UNIT/ML VIAL SQ SCH (08:25)
[2021-07-17] MEDS: ENOXAPARIN SODIUM 30 MG/0.3 ML DISP.SYRIN SQ SCH (08:27)
[2021-07-17] MEDS: ASPIRIN 81 MG TAB.CHEW PO SCH (08:29)
[2021-07-17] MEDS: prednisoLONE ACETATE 1% SUSP 5 ML BOTTLE LEFTEYE SCH (08:29)
[2021-07-17] MEDS: CEPHALEXIN MONOHYDRATE 500 MG CAPSULE PO SCH (08:30)
[2021-07-17] MEDS: predniSONE 20 MG TABLET PO SCH (08:30)
[2021-07-17] MEDS: NEOMY SULF/BACITRAC ZN/POLY 15 GM TUBE TP SCH (08:30)
[2021-07-17] MEDS: MONTELUKAST SODIUM (10MG) 10 MG TABLET PO SCH (08:30)
[2021-07-17] MEDS: FERROUS SULFATE (325 MG) 325 MG/TAB TABLET PO SCH (08:30)
[2021-07-17] MEDS: Z GUARD REMEDY 2 OZ OINT TP SCH (08:31)
[2021-07-17] MEDS: CARVEDILOL 6.25 MG TABLET PO SCH (09:13)
[2021-07-17] MEDS ORDERED: PRED20TA PO (11:31)
[2021-07-17] MEDS ORDERED: ISOS20TA8 PO (11:31)
[2021-07-17 11:57] LABS: BASOPHILS % (AUTO) 0.1 % (0.0-2.0); EOSINOPHILS % (AUTO) 0.1 % (0.0-6.0); HEMATOCRIT 32 % (33-45); HEMOGLOBIN 10.9 g/dL (11.5-14.8); LYMPHOCYTES # (AUTO) 0.7 K/uL (0.8-4.8); LYMPHOCYTES % (AUTO) 10.1 % (20.0-44.0); MEAN CORPUSCULAR HGB CONC 34 g/dl (31.0-36.0); MEAN CORPUSCULAR VOLUME 93 fL (82-100); MONOCYTES # (AUTO) 0.5 K/uL (0.1-1.30); NEUTROPHILS # (AUTO) 5.7 K/uL (1.8-8.9); NEUTROPHILS % (AUTO) 82.7 % (43.0-81.0); PLATELET COUNT (AUTO) 126 K/uL (150-450); RED BLOOD CELL COUNT(AUTO) 3.47 MIL/uL (4.0-5.2); WHITE BLOOD COUNT (AUTO) 6.9 K/uL (4.3-11.0)
[2021-07-17 12:17] LABS: ALANINE AMINOTRANSFERASE 17 U/L (12-78); ALBUMIN 2.8 g/dL (3.4-5.0); ALKALINE PHOSPHATASE 67 U/L (46-116); ASPARTATE AMINOTRANSFERASE 9 U/L (15-37); BILIRUBIN,TOTAL 0.3 mg/dL (0.2-1.0); CALCIUM, SERUM 8.6 mg/dL (8.5-10.1); CARBON DIOXIDE 26 mmol/L (21-32); CHLORIDE 97 mmol/L (98-107); CREATININE 2.2 mg/dL (0.6-1.3); GLUCOSE 179 mg/dL (74-106); PHOSPHORUS 3.2 mg/dL (2.5-4.9); POTASSIUM 4.2 mmol/L (3.5-5.1); SODIUM SERUM 131 mmol/L (136-145); TOTAL PROTEIN, SERUM 5.6 g/dL (6.4-8.2); UREA NITROGEN, BLOOD 77 mg/dL (7-18)
--- NOTE | 2021-07-17 13:24 | NUR ---
RT PATIENT REFUSED TX AT THIS TIME. NO SOB NOTED. RN AWARE.
[2021-07-17 13:42] VITALS: BP 138/64
--- NOTE | 2021-07-17 15:36 | NUR ---
ERECTOR OPERATOR NOTE- PT DC HOME W FAMILY AT THIS TIME. AOX4, VS STABLE, MED COMPLIANT AND APPROPRIATE. PT VALUABLES RETURNED TO PT, ID WRISTBAND REMOVED, AFTERCARE AND FOLLOW UP REVIEWED W FAMILY AND PT. VERBALIZED UNDERSTANDING. ESCORTED OFF UNIT TO PRIVATE VEHICLE.
== END 2021-07-17 15:30 | disposition home health service (06) | DRG 194 ==
LOC: ER 20:03 → TRANSITION 23:30 → TELE 07-12 07:27 → MED 07-13 08:54
PROVIDERS: ADMIT Internal Medicine; ATTEND Nurse Practitioner Acute Care
DX: I13.0 Hypertensive heart and chronic kidney disease with heart failure and stage 1 through stage 4 chronic kidney disease, or unspecified chronic kidney disease (principal); J96.01 Acute respiratory failure with hypoxia; N17.0 Acute kidney failure with tubular necrosis; I27.20 Pulmonary hypertension, unspecified; D63.1 Anemia in chronic kidney disease; E11.22 Type 2 diabetes mellitus with diabetic chronic kidney disease; E66.01 Morbid (severe) obesity due to excess calories; I25.10 Atherosclerotic heart disease of native coronary artery without angina pectoris; J44.9 Chronic obstructive pulmonary disease, unspecified; Z20.822 Contact with and (suspected) exposure to COVID-19; G47.33 Obstructive sleep apnea (adult) (pediatric); L03.114 Cellulitis of left upper limb; N18.30 Chronic kidney disease, stage 3 unspecified; Z87.891 Personal history of nicotine dependence; Z95.1 Presence of aortocoronary bypass graft; J40 Bronchitis, not specified as acute or chronic; I34.0 Nonrheumatic mitral (valve) insufficiency; I50.43 Acute on chronic combined systolic (congestive) and diastolic (congestive) heart failure; Z68.41 Body mass index [BMI] 40.0-44.9, adult
CPT/HCPCS: 36415; 36600; 71045-TC; 71250-TC; 76770-TC; 80048-TC; 80053-TC; 80061-TC; 80076-TC; 81001; 82570-TC; 82728-TC; 82803-TC; 82962-TC; 83540-TC; 83605-TC; 83735-TC; 83880; 84100-TC; 84155-TC; 84439-TC; 84443-TC; 84484-TC; 85025-TC; 85378-TC; 85730-TC; 87040-TC; 87081-TC; 87086-TC; 93307-TC; 93970-TC; 94799-TC; 97116-TC; 97530-TC; C9803; G0378; J0360; J1644; J1650; J1815; J1940; J2270; J2405; J2930; J3490; J7040